=== PATIENT | female | born 1975 | race Caucasian/White ===

== ENCOUNTER 2020-12-17 12:37 | Emergency (ER) | payer MEDICAID ==
[~2020-12-17] VITALS: Ht 162.6 cm; Wt 66.4 kg
[2020-12-17] MEDS ORDERED: diphenhydrAMINE 50 mg/ml inj IM ONE (13:20)
[2020-12-17 13:36] VITALS: BP 139/92
== END 2020-12-17 13:37 | disposition home or self-care (01) ==
LOC: ER 12:38
DX: L50.9 Urticaria, unspecified (principal); R21 Rash and other nonspecific skin eruption; Z88.5 Allergy status to narcotic agent
CPT/HCPCS: 96372; 99283; J1200

== ENCOUNTER 2024-05-14 23:58 | Emergency (ER) | payer MEDICAID ==
[~2024-05-14] VITALS: Ht 162.6 cm; Wt 71.3 kg
[2024-05-15] VITALS: BP 141/85; PULSE 106; RESP 16; O2SAT 100
[2024-05-15] MEDS ORDERED: CEPH-585 PO (00:15)
[2024-05-15] MEDS ORDERED: CLOT30CR19 TOP (00:15)
[2024-05-15 00:19] VITALS: TEMP 97.7
[2024-05-15] MEDS: cephalexin 250mg capsule PO ONE (00:21)
== END 2024-05-15 00:29 | disposition home or self-care (01) ==
LOC: ER 23:59
DX: M79.672 Pain in left foot (principal); Z88.5 Allergy status to narcotic agent; Z79.2 Long term (current) use of antibiotics; Z79.899 Other long term (current) drug therapy
CPT/HCPCS: 99283

== ENCOUNTER 2024-06-01 12:03 | Emergency (ER) | payer MEDICAID ==
[~2024-06-01] VITALS: Ht 162.6 cm; Wt 69.3 kg
[~2024-06-01 12:03] MED LIST: CLOT30CR19 TOP
[2024-06-01 12:23] VITALS: PULSE 90; RESP 18; O2SAT 99
[2024-06-01 13:07] VITALS: TEMP 97.8
== END 2024-06-01 13:09 | disposition home or self-care (01) ==
LOC: ER 12:04
DX: B35.3 Tinea pedis (principal); Z88.5 Allergy status to narcotic agent
CPT/HCPCS: 99281

== ENCOUNTER 2025-02-09 13:15 | Emergency (ER) | payer OTHER, MEDICAID ==
[~2025-02-09] VITALS: Ht 162.6 cm; Wt 68.2 kg
[2025-02-09 13:20] VITALS: TEMP 98.4
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
[2025-02-09 15:44] VITALS: BP 131/94; PULSE 95; RESP 14; O2SAT 100
== END 2025-02-09 15:45 | disposition home or self-care (01) ==
LOC: ER 13:15
DX: S06.0X0A Concussion without loss of consciousness, initial encounter (principal); S20.212A Contusion of left front wall of thorax, initial encounter; S50.311A Abrasion of right elbow, initial encounter; Z88.5 Allergy status to narcotic agent; Z79.899 Other long term (current) drug therapy; V49.9XXA Car occupant (driver) (passenger) injured in unspecified traffic accident, initial encounter; Y93.89 Activity, other specified; Y92.89 Other specified places as the place of occurrence of the external cause; Y99.8 Other external cause status
CPT/HCPCS: 70450; 71046; 99284